=== PATIENT | female | born 1985 | race Two or more races ===

== ENCOUNTER 2019-11-10 18:32 | Emergency (ER) | payer OTHER ==
[~2019-11-10] VITALS: Ht 160 cm; Wt 87.1 kg
--- NOTE | 2019-11-10 18:36 | NUR ---
PT BIB C/O L SIDED CHEST PAIN ACHING WORSENING WITH MOVEMENT SINCE THIS MORNING, PT IS AAOX4, NOT IN RESPIRATORY DISTRESS, HOOKED TO MONITOR, KEPT RESTED AND COMFORTABLE, WILL CONTINUE TO MONITOR.
--- NOTE | 2019-11-10 18:49 | NUR ---
SHAMIKA PINA AT BEDSIDE FOR EVAL.
--- NOTE | 2019-11-10 18:59 | NUR ---
URINE SPECIMEN COLLECTED AND SENT TO LAB.
[2019-11-10] MEDS ORDERED: LORAZEPAM 1 MG TABLET PO ONE (19:00)
[2019-11-10] MEDS ORDERED: IBUPROFEN 600 MG TABLET PO ONE ×2 (19:00→19:01)
[2019-11-10] MEDS ORDERED: LORAZEPAM 1 MG TABLET ONE (19:00)
--- NOTE | 2019-11-10 19:10 | NUR ---
ER PHLEB AT BEDSIDE FOR BLOOD DRAW.
--- NOTE | 2019-11-10 19:14 | NUR ---
REPORT GIVEN TO CESAR JOHN FOR SAH[facility].
--- NOTE | 2019-11-10 19:14 | NUR ---
XRAY AT BEDSIDE
--- NOTE | 2019-11-10 19:14 | NUR ---
COMPLIANCE REPRESENTATIVE DEALER AT BEDSIDE FOR XRAY.
[2019-11-10 19:17] LABS: BASOPHILS # (AUTO) 0.1 /CMM (0.0-0.2); BASOPHILS % (AUTO) 1.3 % (0.0-2.0); EOSINOPHILS % (AUTO) 2.4 % (0.0-6.0); HEMATOCRIT 42 % (33-45); HEMOGLOBIN 14.3 g/dL (11.5-14.8); LYMPHOCYTES # (AUTO) 2.8 /CMM (0.8-4.8); LYMPHOCYTES % (AUTO) 36.5 % (20.0-44.0); MEAN CORPUSCULAR HGB CONC 34 g/dl (31.0-36.0); MEAN CORPUSCULAR VOLUME 87 fL (82-100); MONOCYTES # (AUTO) 0.6 /CMM (0.1-1.30); MONOCYTES % (AUTO) 7.3 % (2.0-12.0); NEUTROPHILS # (AUTO) 4.1 /CMM (1.8-8.9); NEUTROPHILS % (AUTO) 52.5 % (43.0-81.0); PLATELET COUNT (AUTO) 341 /CMM (150-450); RED BLOOD CELL COUNT(AUTO) 4.85 MIL/uL (4.0-5.2); WHITE BLOOD COUNT (AUTO) 7.7 K/uL (4.3-11.0)
[2019-11-10 19:32] LABS: CALCIUM, SERUM 9.2 mg/dL (8.5-10.1); CARBON DIOXIDE 27 mmol/L (21-32); CHLORIDE 103 mmol/L (98-107); CREATININE 0.7 mg/dL (0.6-1.3); GLUCOSE 122 mg/dL (74-106); POTASSIUM 3.6 mmol/L (3.5-5.1); SODIUM SERUM 140 mmol/L (136-145); UREA NITROGEN, BLOOD 13 mg/dL (7-18)
[2019-11-10 19:37] LABS: ALANINE AMINOTRANSFERASE 32 U/L (12-78); ALBUMIN 3.9 g/dL (3.4-5.0); ALKALINE PHOSPHATASE 98 U/L (46-116); ASPARTATE AMINOTRANSFERASE 16 U/L (15-37); BILIRUBIN,DIRECT 0.1 mg/dL (0.0-0.2); BILIRUBIN,TOTAL 0.3 mg/dL (0.2-1.0); TOTAL PROTEIN, SERUM 7.5 g/dL (6.4-8.2)
--- NOTE | 2019-11-10 20:12 | NUR ---
Patient discharged to home in stable condition. Written and verbal after care instructions given. Patient verbalizes understanding of instruction and RX. vss. no acute distress noted.
[2019-11-10 20:13] VITALS: BP 128/82
== END 2019-11-10 20:13 | disposition home or self-care (01) ==
LOC: ER 18:35
DX: R07.89 Other chest pain (principal)
CPT/HCPCS: 36415; 71045-TC; 80048-TC; 80076-TC; 83690-TC; 84484-TC; 84703-TC; 85025-TC

== ENCOUNTER 2022-02-13 19:36 | Emergency (ER) | payer OTHER ==
[~2022-02-13] VITALS: Ht 160 cm; Wt 83.9 kg
[2022-02-13 20:40] VITALS: BP 149/89
--- NOTE | 2022-02-13 20:44 | NUR ---
BIBFAMILY C/O LEFT 8/10 EARACHE SINCE LAST NIGHT. DIFFICULTY HEARING, NO TRAUMA NOTED. PT A/OX4. TOLERATING R/A WELL WITH NO SOB. PT AMBULATORY WITH STEADY GAIT. VSS. AWAITING MD LAIRD
[2022-02-13] MEDS ORDERED: NEOM10DR11 EACH EAR (20:53)
--- NOTE | 2022-02-13 20:57 | NUR ---
Patient discharged to home in stable condition. RX Written and verbal after care instructions given. Patient verbalizes understanding of instruction. PT ambulatory with a steady gait
== END 2022-02-13 21:03 | disposition home or self-care (01) ==
LOC: ER 19:43
DX: H92.01 Otalgia, right ear (principal); Z60.2 Problems related to living alone; Z79.899 Other long term (current) drug therapy